=== PATIENT | female | born 1970 | race Caucasian/White ===

== ENCOUNTER 2018-09-19 11:53 | Inpatient (IN) | payer OTHER ==
[~2018-09-19] VITALS: Ht 167.6 cm; Wt 69.4 kg
[~2018-09-19 11:53] MED LIST: DOLOGESIC CAPLE1 TAB PO; ORPH100T PO
[2018-09-19] MEDS ORDERED: CLARITIN10 M1 PO (12:54)
== END 2018-09-24 09:56 | DRG 743 ==
LOC: O/R 09-21 06:33 → OB/GYN 09-21 06:33
PROVIDERS: Obstetrics & Gynecology; Urology
PROC: 0UT70ZZ Resection of Bilateral Fallopian Tubes, Open Approach (ICD-10-PCS; 2018-09-21)
PROC: 0T788DZ Dilation of Bilateral Ureters with Intraluminal Device, Via Natural or Artificial Opening Endoscopic (ICD-10-PCS; 2018-09-21)
PROC: 0UT90ZZ Resection of Uterus, Open Approach (ICD-10-PCS; principal; 2018-09-21 11:00)
PROC: 0UT20ZZ Resection of Bilateral Ovaries, Open Approach (ICD-10-PCS; 2018-09-21 11:00)
DX: D25.1 Intramural leiomyoma of uterus (principal)